=== PATIENT | female | born 1975 | race Caucasian/White ===

== ENCOUNTER 2021-01-14 19:44 | Emergency (ER) | payer OTHER ==
[2021-01-14] MEDS ORDERED: IBUPROFEN800 MG PO (22:13)
[2021-01-14] MEDS ORDERED: CYCLOBENZAPRINE10 MG PO (22:42)
== END 2021-01-14 22:40 | disposition home or self-care (01) ==
LOC: ER1 19:44
DX: S86.911A Strain of unspecified muscle(s) and tendon(s) at lower leg level, right leg, initial encounter (principal); S70.01XA Contusion of right hip, initial encounter; W01.0XXA Fall on same level from slipping, tripping and stumbling without subsequent striking against object, initial encounter; Y92.830 Public park as the place of occurrence of the external cause
CPT/HCPCS: 72100; 73502; 73560; 96372; 99283; J1885